=== PATIENT | male | born 1970 | race Asian ===

== ENCOUNTER 2019-11-29 10:13 | Emergency (ER) | payer OTHER ==
[2019-11-29] MEDS ORDERED: DEXAMETHASONE 10 MG/ML VIAL PO STA (10:50)
[2019-11-29] MEDS ORDERED: CHERRY SYRUP 10 ML UDC PO ONE (10:50)
[2019-11-29] MEDS ORDERED: KETOROLAC 60 MG/2 ML VIAL IM STA (10:51)
--- NOTE | 2019-11-29 11:48 | ED Physician Documentation ---
PD HPI BACK PAIN - Stated complaint Stated Complaint: LBP - Chief complaint Chief Complaint: Back Pain - History obtained from History obtained from: Patient - History of Present Illness Timing - onset: How many days ago (3) Timing - duration: Days Timing - details: Abrupt onset, Still present Location: Lower, Right Quality: Pain, Spasm, Sharp, Similar to prior episodes Associated symptoms: No: Fever, Weakness, Numbness, Incontinent of urine, Unable to urinate, Hematuria, Incontinent of stool Improves with: Rest, Ice, Position Worsened by: Movement, Lifting Similar symptoms before: Diagnosis (lumbar disc disease) Recently seen: Not recently seen - Additional information Additional information: 49-year-old male with a history of lumbar disc disease has injured his back again about 3 days ago when he slipped on the ice. He has had increased pain and is not able to walk without his cane. He denies any saddle anesthesia he den ies urinary incontinence. He does have some issues with constipation and diarrhea on a regular basis. He indicates that he is previously been treated with lumbar epidural steroid injection at [facility]. Review of Systems Constitutional: denies: Fever Eyes: denies: Decreased vision Ears: denies: Ear pain Nose: denies: Congestion Throat: denies: Sore throat Cardiac: denies: Chest pain / pressure, Palpitations Respiratory: denies: Dyspnea, Cough GI: denies: Abdominal Pain, Nausea, Vomiting : denies: Dysuria Musculoskeletal: reports: Back pain PD PAST MEDICAL HISTORY - Present Medications Home Medications: Ambulatory Orders Medication Instructions Recorded Confirmed Cyclobenzaprine [Flexeril] 10 mg PO TID PRN #20 tablet 11/29/19 Hydrocodone/Acetaminophen 1 - 2 each PO Q6H PRN #14 tablet 11/29/19 [Hydrocodon-Acetaminophen 5-325] - Allergies Allergies/Adverse Reactions: Allergies Allergy/AdvReac Type Severity Reaction Status Date / Time No Known Drug Allergies Allergy Verified 11/29/19 10:20 - Social History Does the pt smoke?: No Smoking Status: Never smoker Does the pt drink ETOH?: No Does the pt have substance abuse?: No - Immunizations Immunizations: TDAP >10years/unknown PD ED PE NORMAL - Vitals Vital signs reviewed: Yes (hypertensive) - General General: Alert and oriented X 3, Well developed/nourished, Other (Slim 49-year-old male who is standing at the bedside with a cane moves slowly.) - HEENT HEENT: Atraumatic, PERRL, EOMI - Neck Neck: Supple, no meningeal sign, No bony TTP - Respiratory Respiratory: No respiratory distress - Back Back: No CVA TTP, No spinal TTP, Other (There is tenderness to the paraspinous muscles in the lower lumbar spine.) - Derm Derm: Normal color, Warm and dry, No rash - Extremities Extremities: No deformity, No edema - Neuro Neuro: Alert and oriented X 3, rfid manager 2-12 intact, No motor deficit, No sensory deficit, Normal speech Eye Opening: Spontaneous Motor: Obeys Commands Verbal: Oriented GCS Score: 15 - Psych Psych: Normal mood, Normal affect Results - Vitals Vitals: Vital Signs - 24 hr 11/29/19 10:20 Temperature 36.5 C Heart Rate 88 Respiratory 14 Rate Blood Pressure 135/88 H O2 Saturation 100 Oxygen O2 Source Room air PD MEDICAL DECISION MAKING - ED course Complexity details: considered differential, d/w patient ED course: 49-year-old male with acute sciatica has pain rating down his right leg. He is administered dexamethasone 10 mg orally and Toradol 60 mg IM he does not have much relief of the pain with this. He is driving today. He will be administered pain medication muscle relaxant and he will follow-up in [place]. Departure - Departure Disposition: 01 Home, Self Care Clinical Impression: Sciatica Qualifiers: Laterality: right Qualified Code(s): M54.31 - Sciatica, right side Condition: Stable Instructions: ED Sciatica Follow-Up: [facility] [Provider Group] [facility] [Provider Group] Prescriptions: Cyclobenzaprine [Flexeril] 10 mg PO TID PRN #20 tablet PRN Reason: Spasms Hydrocodone/Acetaminophen [Hydrocodon-Acetaminophen 5-325] 1 - 2 each PO Q6H PRN #14 tablet PRN Reason: pain Forms: Activity restrictions
[2019-11-29 12:04] VITALS: BP 128/92
== END 2019-11-29 12:02 | disposition home or self-care (01) ==
LOC: ED 10:13
DX: M54.41 Lumbago with sciatica, right side (principal); W00.0XXA Fall on same level due to ice and snow, initial encounter
CPT/HCPCS: 96372; 99283; 99284; A9270

== ENCOUNTER 2020-03-21 11:26 | Emergency (ER) | payer OTHER ==
--- NOTE | 2020-03-21 12:44 | ED Physician Documentation ---
PD HPI BACK PAIN - Stated complaint Stated Complaint: BACK PX - Chief complaint Chief Complaint: Back Pain - History obtained from History obtained from: Patient - History of Present Illness Timing - onset: Last night (with just normal ROM, no noted acute mechanism.) Timing - duration: Days (1) Timing - details: Abrupt onset, Still present Location: Lower, Right, Left Quality: Pain, Spasm, Other (pain radiates down backs of both thighs, but not to lower leg nor feet. No numbness nor weakness.) Associated symptoms: No: Fever, Weakness, Numbness Improves with: Rest. No: Meds (Ibuprofen without improvement. Had FLexeril from prior episode, and helps some but makes him feel very dry mouth and lightheaded.) Worsened by: Movement, Twisting, Palpation Contributing factors: Twisting. No: Trauma Similar symptoms before: Diagnosis (has this about 1-2 times per year and usually lasts few days to a week. Normal acitivity in interval times.) Recently seen: Not recently seen Review of Systems Constitutional: denies: Fever, Chills, Myalgias Nose: denies: Rhinorrhea / runny nose, Congestion Throat: denies: Sore throat Respiratory: denies: Cough GI: denies: Abdominal Pain : denies: Dysuria, Frequency, Hematuria Skin: denies: Rash, Lesions Musculoskeletal: reports: Back pain. denies: Neck pain Neurologic: denies: Focal weakness, Numbness, Near syncope PD PAST MEDICAL HISTORY - Past Medical History Past Medical History: Yes Cardiovascular: None Respiratory: None Neuro: None Endocrine/Autoimmune: None GI: None : None HEENT: None Psych: None Musculoskeletal: Chronic back pain Derm: None - Present Medications Home Medications: Ambulatory Orders Medication Instructions Recorded Confirmed Cyclobenzaprine [Flexeril] 10 mg PO TID PRN #20 tablet 11/29/19 Hydrocodone/Acetaminophen 1 - 2 each PO Q6H PRN #14 tablet 11/29/19 [Hydrocodon-Acetaminophen 5-325] Oxycodone HCl/Acetaminophen 1 each PO TID PRN #20 tablet 03/21/20 [Percocet 5-325 mg Tablet] Tizanidine HCl 4 mg PO TID PRN #25 capsule 03/21/20 dexAMETHasone [Decadron] 4 mg PO DAILY #5 tablet 03/21/20 - Allergies Allergies/Adverse Reactions: Allergies Allergy/AdvReac Type Severity Reaction Status Date / Time No Known Drug Allergies Allergy Verified 11/29/19 10:20 - Social History Does the pt smoke?: No Smoking Status: Never smoker Does the pt drink ETOH?: No Does the pt have substance abuse?: No - Immunizations Immunizations: TDAP >10years/unknown - POLST Patient has POLST: No PD ED PE NORMAL - Vitals Vital signs reviewed: Yes - General General: Alert and oriented X 3, Well developed/nourished, Other (appears uncomfortable and markedly guarding motion of low back. ) - Back Back: No CVA TTP, No spinal TTP, Other (tender in paralumbar muscles without focal trigger. No redness/skin lesions. ) - Derm Derm: Normal color, Warm and dry - Neuro Neuro: Alert and oriented X 3, No motor deficit, No sensory deficit, Normal speech, Other (normal patellar reflexes. ) Results - Vitals Vitals: Vital Signs - 24 hr 03/21/20 03/21/20 11:37 14:07 Temperature 36.7 C 36.7 C Heart Rate 88 68 Respiratory 16 16 Rate Blood Pressure 119/77 109/84 H O2 Saturation 99 100 Oxygen O2 Source Room air PD MEDICAL DECISION MAKING - ED course Complexity details: considered differential (episodic low back pain with red flags. ), d/w patient Departure - Departure Disposition: 01 Home, Self Care Clinical Impression: Acute low back pain Qualifiers: Back pain laterality: bilateral Sciatica presence: with sciatica Sciatica laterality: bilateral sciatica Qualified Code(s): M54.42 - Lumbago with sciatica, left side; M54.41 - Lumbago with sciatica, right side Condition: Stable Record reviewed to determine appropriate education?: Yes Instructions: ED Low Back Pain Injury Follow-Up: [facility] [Provider Group] Prescriptions: dexAMETHasone [Decadron] 4 mg PO DAILY #5 tablet Oxycodone HCl/Acetaminophen [Percocet 5-325 mg Tablet] 1 each PO TID PRN #20 tablet PRN Reason: pain Tizanidine HCl 4 mg PO TID PRN #25 capsule PRN Reason: Spasms Comments: Heat and gentle stretching for the low back. Physical treatments such as chiropractic and massage are good. Range of motion exercises are helpful for the back as well. Use your ibuprofen 600 mg 3 times a day with food for the next 7 to 10 days. Add tizanidine muscle relaxant every 6-8 hours if needed for spasms and stiffness. Also add Decadron steroid anti-inflammatory for the next 5 days. To these add Tylenol 4 times a day or Percocet if needed for worse pain. Recheck if not improving well over the next few days and resolved in 5 or 6 days. Off work for the next 5 days to help with improvement. Forms: Activity restrictions Discharge Date/Time: 03/21/20 14:10
[2020-03-21] MEDS ORDERED: DEXAMETHASONE 10 MG/ML VIAL PO STA (12:59)
[2020-03-21] MEDS ORDERED: HYDROmorphone 2 MG/ML VIAL IM STA (12:59)
[2020-03-21] MEDS ORDERED: CHERRY SYRUP 10 ML UDC PO ONE (12:59)
[2020-03-21] MEDS ORDERED: KETOROLAC 30 MG/ML VIAL IM STA (12:59)
[2020-03-21] MEDS ORDERED: ACETAMINOPHEN 325 MG TABLET PO STA (13:00)
[2020-03-21 14:08] VITALS: BP 109/84
== END 2020-03-21 14:10 | disposition home or self-care (01) ==
LOC: ED 11:26
DX: M54.42 Lumbago with sciatica, left side (principal); M54.41 Lumbago with sciatica, right side
CPT/HCPCS: 96372; 99283; A9270; J1170

== ENCOUNTER 2022-11-08 10:50 | Emergency (ER) | payer OTHER ==
[2022-11-08] MEDS ORDERED: HYDROmorphone 1 MG/ML CARPUJECT IM STA (13:01)
[2022-11-08] MEDS ORDERED: DEXAMETHASONE 10 MG/ML VIAL PO STA (13:01)
[2022-11-08] MEDS ORDERED: KETOROLAC 60 MG/2 ML VIAL IM STA (13:01)
[2022-11-08] MEDS ORDERED: CHERRY SYRUP 10 ML UDC PO ONE (13:01)
--- NOTE | 2022-11-08 13:03 | ED Physician Documentation ---
PD HPI BACK PAIN - Stated complaint Stated Complaint: L BACK PX - Chief complaint Chief Complaint: Back Pain - History obtained from History obtained from: Patient - Additional information Additional information: 52-year-old gentleman gets intermittent exacerbations of low back pain a couple times a year. He has known degenerative disc disease. Without specific trauma his left low back started hurting yesterday with radiation into the left hip. He denies any new weakness, numbness, tingling, fevers, or incontinence. Because of that he feels like he has to walk hunched over. He tried a Flexeril prior to arrival which was mildly helpful but gave him severe dry mouth. Review of Systems Constitutional: denies: Fever, Chills GI: denies: Abdominal Pain Musculoskeletal: reports: Neck pain, Back pain. denies: Joint swelling PD PAST MEDICAL HISTORY - Past Medical History Past Medical History: Yes Cardiovascular: None Respiratory: None Neuro: None Endocrine/Autoimmune: None GI: None : None HEENT: None Psych: None Musculoskeletal: Chronic back pain Derm: None - Present Medications Home Medications: Ambulatory Orders Medication Instructions Recorded Confirmed Cyclobenzaprine [Flexeril] 10 mg PO TID PRN #20 tablet 11/29/19 Hydrocodone/Acetaminophen 1 - 2 each PO Q6H PRN #14 tablet 11/29/19 [Hydrocodon-Acetaminophen 5-325] Oxycodone HCl/Acetaminophen 1 each PO TID PRN #20 tablet 03/21/20 [Percocet 5-325 mg Tablet] Tizanidine HCl 4 mg PO TID PRN #25 capsule 03/21/20 dexAMETHasone [Decadron] 4 mg PO DAILY #5 tablet 03/21/20 HYDROcod/ACETAM 5/325 [[place] 5/325] 1 - 2 tab PO Q6H PRN #15 tablet 11/08/22 - Allergies Allergies/Adverse Reactions: Allergies Allergy/AdvReac Type Severity Reaction Status Date / Time No Known Drug Allergies Allergy Verified 11/08/22 11:24 - Social History Does the pt smoke?: No Smoking Status: Never smoker Does the pt drink ETOH?: No Does the pt have substance abuse?: No - Immunizations Immunizations: TDAP >10years/unknown - POLST Patient has POLST: No PD ED PE NORMAL - Vitals Vital signs reviewed: Yes - General General: Alert and oriented X 3, No acute distress, Other (Win[place] with motion) - Abdomen Abdomen: Normal bowel sounds, Soft, Non tender - Back Back: No spinal TTP, Other (The patient has equal and normal Achilles and patellar reflexes bilaterally. Normal sensation in all areas of the legs. Patient denies saddle anesthesia. Normal strength in flexion-extension at the ankles, knees, and flexion of the hips.) - Neuro Neuro: Alert and oriented X 3, Normal speech Results - Vitals Vitals: Vital Signs - 24 hr 11/08/22 11:22 Temperature 36.4 C L Heart Rate 89 Respiratory 20 Rate Blood Pressure 131/103 H O2 Saturation 96 Oxygen O2 Source Room air PD Medical Decision Making - ED course ED course: This patient has seemingly uncomplicated musculoskeletal back pain. The patient has no "red flags." Specifically denies IV drug use, fevers, incontinence, saddle anesthesia. Spinal epidural abscess was considered, given that the pat ient has no fever, is not diabetic, has no spinal tenderness, does not use IV drugs, and has no bilateral neurologic symptoms, the diagnosis of spinal epidural abscess is considered exceedingly unlikely. I am prescribing a short course of short-acting opioid pain medication for this patient. I have reviewed the patients [employer] and no concerning findings were noted. I have discussed that the opioids are for short term therapy only, and will not be refilled from the ED. Departure - Departure Disposition: 01 Home, Self Care Clinical Impression: Acute exacerbation of chronic low back pain Condition: Good Record reviewed to determine appropriate education?: Yes Instructions: ED Spasm Back No Trauma Prescriptions: HYDROcod/ACETAM 5/325 [[place] 5/325] 1 - 2 tab PO Q6H PRN #15 tablet PRN Reason: Pain Comments: I sent your prescription electronically to [facility] in [place]. Call your doctor to arrange a follow-up appointment, make the next available appointment. In the interim, return anytime if worse or if new symptoms develop. I am prescribing a short course of narcotic pain medication for you. These are potentially dangerous and addictive medications that should be used carefully. These medications may constipate you. Take an [id number] stool softener (docusate) twice daily with plenty of water while taking these medications. If you go 24 hours without a bowel movement, take [id number] miralax, per package instructions. Do not drink or drive while taking these medications. If you received narcotic or sedating medications while in the emergency department, do not drive for 24 hours. Store this medication in a safe, secure place and out of reach of children. It is a violation of federal law to give or sell this medication to another person or to use in a manner other than prescribed. The ED will not refill narcotic prescriptions, including prescriptions lost or stolen. To dispose of unwanted medications: 1. [facility] at [address] in [place] has a medication drop box. They accept prescription medications (in pill form) Friday through Friday 9:00 a.m. to 5:00 p.m. 2. The [facility] [employer] accepts prescription medications (in pill form only) for disposal year round. Call for more information. 3. Contact the [facility] for the next [facility] sponsored prescription drug collection event. , [phone], or [phone]; Note that many narcotic pain relievers also contain Tylenol/acetaminophen. Please ensure that your total dose of acetaminophen from all sources does not exceed 3 g (3000 mg) per day. Forms: Activity restrictions
[2022-11-08 13:26] VITALS: BP 136/93
== END 2022-11-08 13:26 | disposition home or self-care (01) ==
LOC: ED 10:50
DX: M54.59 Other low back pain (principal)
CPT/HCPCS: 96372; 99283; A9270; J1170

== ENCOUNTER 2022-11-12 07:47 | Outpatient (CLI) | payer OTHER ==
[~2022-11-12 07:47] MED LIST: GADOBUTROL 7.5 MMOL/7.5 ML VIAL ONE
--- NOTE | 2022-11-12 13:25 | MRI Report ---
PROCEDURE: CHEST W/WO INDICATIONS: R FLANK MASS CONTRAST: GADAVIST 6.3ML TECHNIQUE: Precontrast Axial 2-D spoiled GE in- and [id number], axial breath-hold T2 FSE, axial STIR FSE. Aft er administration of contrast, axial 2-D spoiled GE with fat saturation acquired over the lesion of c oncern. COMPARISON: None. FINDINGS: Image quality: Excellent. Region of interest: Fiducial marker is placed over lateral abdominal wall at the level inferior to t he tip of right kidney. There is significant ring artifacts markedly limits the evaluation of this re gion. Normal fat signal is noted at the site of the marker without discrete enhancing soft tissue mas s or fluid collection. Bones: Nearby osseous structures demonstrate normal overall marrow signal. IMPRESSION: 1. Markedly limited study of right flank soft tissue due to significant artifacts. 2. Limiting evaluation of right lateral abdominal wall soft tissue shows normal fat signal likely rep resent benign lipoma. 3. No other soft tissue mass or area of abnormal enhancement is seen. No marrow signal abnormality. If indicated, dedicated MRI of abdominal wall without and with contrast can be done for further evalu ation of this area. Reviewed by: Orion Moreno MD on 11/12/2022 1:24 PM PST Approved by: Orion Moreno MD on 11/12/2022 1:24 PM PST Station ID: [id number]
[2022-11-12] MEDS ORDERED: GADOBUTROL 7.5 MMOL/7.5 ML VIAL IVP ONE (13:57)
== END 2022-11-12 07:48 | disposition home or self-care (01) ==
LOC: DI 07:47
PROVIDERS: ATTEND Registered Nurse
DX: R22.2 Localized swelling, mass and lump, trunk (principal)
CPT/HCPCS: 71552; A9585

== ENCOUNTER 2022-11-23 07:15 | Outpatient (CLI) | payer OTHER ==
--- NOTE | 2022-11-25 08:55 | MRI Report ---
PROCEDURE: CERVICAL SPINE WO INDICATIONS: CERVICAL RADICLOPATHY TECHNIQUE: Noncontrast sagittal T1 spin echo and T2 fast spin echo, sagittal STIR, foraminal oblique sagittal T2 fast spin echo, and axial gradient echo or T2 fast spin echo through the cervical spine. COMPARISON: None. FINDINGS: Image quality: Excellent. Alignment and Curvature: There is loss of normal cervical lordosis. Bone Marrow: Marrow demonstrates normal overall signal. Mild reactive signal throughout the endplat es of the cervical and upper thoracic spine. Spinal Cord: Visualized spinal cord has normal size and signal. No cerebellar tonsillar herniation. Paraspinous Soft Tissues: No paravertebral masses. Prevertebral soft tissues are normal in thicknes s. C2-C3: Congenital canal stenosis. Mild disc desiccation and diffuse disc bulge. Mild facet and uncov ertebral hypertrophy bilaterally. Moderate canal stenosis. Mild bilateral foraminal stenosis. C3-C4: Congenital canal stenosis. Mild disc desiccation and diffuse disc bulge with superimposed ce ntral protrusion. Mild facet and uncovertebral hypertrophy bilaterally. Severe canal stenosis. Mild c ord flattening. Severe right and moderate left foraminal stenosis. Right C4 nerve root compression. C4-C5: Congenital canal stenosis. Moderate disc desiccation. Mild diffuse disc bulge with superimpos ed left paracentral protrusion. Mild facet and uncovertebral hypertrophy. Severe canal stenosis. Mild left cord flattening. Moderate bilateral foraminal stenosis. C5-C6: Congenital canal stenosis. Moderate disc desiccation. Mild diffuse disc bulge with superimpos ed right far lateral protrusion. Moderate right and mild left facet and uncovertebral hypertrophy. Se philip canal stenosis. Mild cord flattening. Severe right and mild left foraminal stenosis. Right C6 ne rve root compression. C6-C7: Congenital canal stenosis. Moderate disc desiccation. Moderate diffuse disc bulge with superi mposed right far lateral and left paracentral protrusion. Mild facet and uncovertebral hypertrophy bi laterally. Severe canal stenosis. Mild cord flattening. Severe right and moderate left foraminal sten osis. Right C7 nerve root compression. C7-T1: Congenital canal stenosis. Overall mild canal stenosis. No foraminal stenosis. IMPRESSION: 1. Diffuse congenital canal stenosis with superimposed disc and facet disease, as well as uncovertebr al hypertrophy. 2. Multilevel canal stenoses, worst at C3-C4, C4-C5, C5-C6, and C6-C7 where there is associated cord flattening. 3. Multilevel foraminal stenoses, worst at C3-C4, C5-C6, and C6-C7, where there is associated intrafo raminal nerve root compression. Recommend correlation with clinical symptoms to ascertain relevance o f these findings. Reviewed by: Mitchell Cho MD on 11/25/2022 8:53 AM PST Approved by: Mitchell Cho MD on 11/25/2022 8:53 AM PST Station ID: [id number]
== END 2022-11-23 07:16 | disposition home or self-care (01) ==
LOC: DI 07:15
PROVIDERS: ATTEND Registered Nurse
DX: M50.11 Cervical disc disorder with radiculopathy, high cervical region (principal); M48.02 Spinal stenosis, cervical region; M47.22 Other spondylosis with radiculopathy, cervical region

== ENCOUNTER 2023-01-15 18:21 | Emergency (ER) | payer OTHER ==
[2023-01-15 18:28] VITALS: BP 133/95
--- NOTE | 2023-01-15 18:42 | ED Physician Documentation ---
History of Present Illness - Stated complaint Stated Complaint: REMOVE ARTUR - Chief complaint Chief Complaint: Wound - History obtained from History obtained from: Patient - History of Present Illness Pain level max: 0 Pain level now: 0 - Additonal information Additional information: 52-year-old male presents requesting staple removal from his scalp. These were placed about 10 days ago. No complaints PD PAST MEDICAL HISTORY - Past Medical History Cardiovascular: None Respiratory: None Neuro: None Endocrine/Autoimmune: None GI: None : None HEENT: None Psych: None Musculoskeletal: Chronic back pain Derm: None - Present Medications Home Medications: Ambulatory Orders Medication Instructions Recorded Confirmed Cyclobenzaprine [Flexeril] 10 mg PO TID PRN #20 tablet 11/29/19 Hydrocodone/Acetaminophen 1 - 2 each PO Q6H PRN #14 tablet 11/29/19 [Hydrocodon-Acetaminophen 5-325] Oxycodone HCl/Acetaminophen 1 each PO TID PRN #20 tablet 03/21/20 [Percocet 5-325 mg Tablet] Tizanidine HCl 4 mg PO TID PRN #25 capsule 03/21/20 dexAMETHasone [Decadron] 4 mg PO DAILY #5 tablet 03/21/20 HYDROcod/ACETAM 5/325 [[place] 5/325] 1 - 2 tab PO Q6H PRN #15 tablet 11/08/22 - Allergies Allergies/Adverse Reactions: Allergies Allergy/AdvReac Type Severity Reaction Status Date / Time No Known Drug Allergies Allergy Verified 01/04/23 20:31 - Social History Does the pt smoke?: No Smoking Status: Never smoker Does the pt drink ETOH?: No Does the pt have substance abuse?: No - Immunizations Immunizations: TDAP >10years/unknown - POLST Patient has POLST: No PD ED PE NORMAL - Vitals Vital signs reviewed: Yes - General General: Alert and oriented X 3, No acute distress - HEENT HEENT: Other (3 artur on the occiput, well-healed. No signs of infection) - Derm Derm: Warm and dry - Neuro Neuro: Alert and oriented X 3 Results - Vitals Vitals: Vital Signs - 24 hr 01/15/23 18:24 Temperature 36.5 C Heart Rate 98 Respiratory 16 Rate Blood Pressure 133/95 H O2 Saturation 95 Oxygen O2 Source Room air Procedures - Suture/staple Removal (location) - Minor Scalp Suture/staple removal: # artur (3), No complications PD Medical Decision Making - ED course Complexity details: considered differential, d/w patient ED course: Artur removed. No complications. No signs of infection. This document was made in part using voice recognition software. While efforts are made to proofread this document, sound alike and grammatical errors may occur. Departure - Departure Disposition: 01 Home, Self Care Clinical Impression: Removal of staple Condition: Good Instructions: ED Stap Removal No Complication Follow-Up: your,doctor as needed [Other] Comments: Your artur are removed. Please return if you worsen. Return if you notice redness, swelling or drainage from the wound Discharge Date/Time: 01/15/23 18:45
== END 2023-01-15 18:45 | disposition home or self-care (01) ==
LOC: ED 18:21
DX: Z48.02 Encounter for removal of sutures (principal)
CPT/HCPCS: 99281

== ENCOUNTER 2023-09-11 12:08 | Emergency (ER) | payer OTHER ==
[2023-09-11 12:28] VITALS: O2SAT 98
[2023-09-11] MEDS ORDERED: DEXAMETHASONE 10 MG/ML VIAL PO STA (14:15)
[2023-09-11] MEDS ORDERED: HYDROmorphone 1 MG/ML CARPUJECT IM STA (14:15)
[2023-09-11] MEDS ORDERED: KETOROLAC 60 MG/2 ML VIAL IM STA (14:15)
[2023-09-11] MEDS ORDERED: CHERRY SYRUP 10 ML UDC PO ONE (14:15)
--- NOTE | 2023-09-11 14:18 | ED Physician Documentation ---
PD HPI BACK PAIN - Stated complaint Stated Complaint: BACK PX/SPASMS - Chief complaint Chief Complaint: Back Pain - History obtained from History obtained from: Patient - History of Present Illness Timing - onset: Yesterday Timing - duration: Days (1) Timing - details: Gradual onset Pain level max: 7 Pain level now: 7 Location: Lower, Left Quality: Pain, Spasm, Similar to prior episodes Associated symptoms: No: Fever, Weakness, Numbness, Incontinent of urine, Unable to urinate, Hematuria, Incontinent of stool Improves with: Rest Worsened by: Movement Contributing factors: No: Trauma, Anticoagulated, Cancer, IVDA - Additional information Additional information: Patient is a 53-year-old male who presents to the emergency department with left low lumbar back pain. States he has a history of degenerative disc disease in his back and that his back "flares up" once or twice per year. He usually receives a dose of Toradol, Dilaudid, dexamethasone and then is placed on Vicodin and Flexeril for home. No loss of bowel or bladder control. No injury that he is aware of. No fevers. No chills. Does not use IV drugs. No numbness or tingling. Worse with movement, better with rest. Today's episode is similar to his prior episodes. Review of Systems Constitutional: denies: Fever, Chills Respiratory: denies: Cough GI: denies: Abdominal Pain : denies: Unable to Void, Incontinent PD PAST MEDICAL HISTORY - Past Medical History Past Medical History: Yes Cardiovascular: None Respiratory: None Neuro: None Endocrine/Autoimmune: None GI: None : None HEENT: None Psych: None Musculoskeletal: Chronic back pain Derm: None - Present Medications Home Medications: Ambulatory Orders Medication Instructions Recorded Confirmed Cyclobenzaprine [Flexeril] 10 mg PO TID PRN #20 tablet 11/29/19 Hydrocodone/Acetaminophen 1 - 2 each PO Q6H PRN #14 tablet 11/29/19 [Hydrocodon-Acetaminophen 5-325] Oxycodone HCl/Acetaminophen 1 each PO TID PRN #20 tablet 03/21/20 [Percocet 5-325 mg Tablet] Tizanidine HCl 4 mg PO TID PRN #25 capsule 03/21/20 dexAMETHasone [Decadron] 4 mg PO DAILY #5 tablet 03/21/20 HYDROcod/ACETAM 5/325 [[place] 5/325] 1 - 2 tab PO Q6H PRN #15 tablet 11/08/22 Cyclobenzaprine [Flexeril] 10 mg PO TID PRN #20 tablet 09/11/23 HYDROcod/ACETAM 5/325 [[place] 5/325] 1 - 2 ea PO Q6H PRN #14 tablet 09/11/23 - Allergies Allergies/Adverse Reactions: Allergies Allergy/AdvReac Type Severity Reaction Status Date / Time No Known Drug Allergies Allergy Verified 09/11/23 12:19 - Social History Does the pt smoke?: No Smoking Status: Never smoker Does the pt drink ETOH?: No Does the pt have substance abuse?: No - Immunizations Immunizations: TDAP >10years/unknown - POLST Patient has POLST: No PD ED PE NORMAL - Vitals Vital signs reviewed: Yes - General General: Alert and oriented X 3, No acute distress - HEENT HEENT: PERRL, Moist mucous membranes - Neck Neck: Supple, no meningeal sign - Cardiac Cardiac: RRR, Strong equal pulses - Respiratory Respiratory: No respiratory distress, Clear bilaterally - Abdomen Abdomen: Soft, Non tender, Non distended - Back Back: No spinal TTP, Other (No midline tenderness palpation or percussion. No step-off or deformity. Paraspinal spasm left lower lumbar.) - Derm Derm: Warm and dry - Extremities Extremities: No edema, No calf tenderness / cord, Other (Normal bilateral lower extremity patellar and ankle jerk reflexes. Normal great toe extension bilaterally. no saddle anesthesia) - Neuro Neuro: Alert and oriented X 3, No motor deficit, No sensory deficit - Psych Psych: Normal mood, Normal affect Results - Vitals Vitals: Vital Signs - 24 hr 09/11/23 12:19 Temperature 36.5 C Heart Rate 84 Respiratory 16 Rate Blood Pressure 130/80 O2 Saturation 98 Oxygen O2 Source Room air PD Medical Decision Making - ED course Complexity details: reviewed old records, considered differential (No cauda equina, no spinal epidural abscess, no fracture, no aortic dissection or evidence of aneursym rupture), d/w patient ED course: Patient with acute on chronic back pain. He was given a dose of IM Toradol as well as Dilaudid. Also given a dose of dexamethasone as has been given to him in the past. Will place on Flexeril and Vicodin for home. No evidence of cauda equina, epidural abscess. No acute injury. No indication for emergent imaging at this time. Patient counseled regarding signs and symptoms for which I believe and urgent re-evaluation would be necessary. Patient with good understanding of and agreement to plan and is comfortable going home at this time This document was made in part using voice recognition software. While efforts are made to proofread this document, sound alike and grammatical errors may occur. Departure - Departure Disposition: 01 Home, Self Care Clinical Impression: Acute low back pain Qualifiers: Back pain laterality: left Sciatica presence: with sciatica Sciatica laterality: sciatica of left side Qualified Code(s): M54.42 - Lumbago with sciatica, left side Sciatica Qualifiers: Laterality: left Qualified Code(s): M54.32 - Sciatica, left side Condition: Good Instructions: ED Sciatica Follow-Up: AUSTIN GONZALES ARNP [Primary Care Provider] - Within 1 week Prescriptions: Cyclobenzaprine [Flexeril] 10 mg PO TID PRN #20 tablet PRN Reason: Spasms HYDROcod/ACETAM 5/325 [[place] 5/325] 1 - 2 ea PO Q6H PRN #14 tablet PRN Reason: Pain Comments: Please follow-up with your doctor for further care. Please return if you worsen. This should improve over the next few days as it has in the past. [facility] [place]. I am prescribing a short course of narcotic pain medication for you. These are potentially dangerous and addictive medications that should be used carefully. These medications may constipate you. Take an exeg-htv-yedvhll stool softener (docusate) twice daily with plenty of water while taking these medications. If you go 24 hours without a bowel movement, take oxmy-ehq-hrvsnfe miralax, per package instructions. Do not drink or drive while taking these medications. If you received narcotic or sedating medications while in the emergency department, do not drive for 24 hours. Store this medication in a safe, secure place and out of reach of children. It is a violation of federal law to give or sell this medication to another person or to use in a manner other than prescribed. The ED will not refill narcotic prescriptions, including prescriptions lost or stolen. To dispose of unwanted medications: 1. [facility] at [address] in [place] has a medication drop box. They accept prescription medications (in pill form) Friday through Friday 9:00 a.m. to 5:00 p.m. 2. [facility] accepts prescription medications (in pill form only) for disposal year round. Call for more information. 3. Contact the [facility] for the next [facility] sponsored prescription drug collection event. , [phone], or [phone];
[2023-09-11 14:40] VITALS: BP 127/89
== END 2023-09-11 14:42 | disposition home or self-care (01) ==
LOC: ED 12:08
DX: M54.42 Lumbago with sciatica, left side (principal); Z79.899 Other long term (current) drug therapy
CPT/HCPCS: 96372; 99283; 99284; A9270; J1170

== ENCOUNTER 2023-11-27 13:00 | Outpatient (CLI) | payer OTHER ==
--- NOTE | 2023-11-28 14:06 | MRI Report ---
PROCEDURE: LUMBAR SPINE WO INDICATIONS: LOW BACK PAIN TECHNIQUE: Noncontrast sagittal T1 spin echo and T2 fast echo, sagittal STIR, axial T1 and T2 fast spin echo thr ough the lumbar spine. In cases with scoliosis, additional coronal T2 fast spin echo may be performe d. COMPARISON: None. FINDINGS: Image quality: Excellent. Alignment and Curvature: There is normal bony alignment. Bone Marrow: Marrow is of normal overall signal. No acute vertebral body compression fractures. Spinal Cord: Conus medullaris terminates at the L1 level. Visualized cord demonstrates normal signa l and size. Paraspinous Soft Tissues: No paravertebral masses. T12-L1: Mild disc desiccation and height loss. Broad based disc bulge. Mild facet and ligamentum fla vum hypertrophy. No canal stenosis. No neural foraminal stenosis. L1-L2: Mild disc desiccation and height loss. Mild facet and ligamentum flavum hypertrophy. No can al stenosis. No foraminal stenosis. L2-L3: Severe disc desiccation and height loss. Broad based disc bulge. There is a posterior centr al disc protrusion which measures 1.2 x 0.7 x 2.1 cm. There is resultant severe canal stenosis. Mild left foraminal narrowing. No right foraminal stenosis. L3-L4: Moderate disc desiccation and height loss. There is a broad-based left paracentral disc bulg e and moderate facet and ligamentum flavum hypertrophy. This results in severe canal stenosis. There is moderate right foraminal narrowing. Mild left neuroforaminal stenosis is present. L4-L5: Moderate disc desiccation and height loss. Broad based disc bulge and severe facet and ligam entum flavum hypertrophy results in severe canal stenosis. Moderate bilateral foraminal narrowing. Th ere is a small focal posterior high intensity zone. L5-S1: Moderate disc desiccation and height loss. Broad based disc bulge. Moderate facet ligamentum flavum hypertrophy. No canal stenosis. No foraminal stenosis. There is a small focal posterior high intensity zone. IMPRESSION: 1. Multilevel disc desiccation and height loss most severe from L2-S1. 2. Broad-based disc bulges and facet and ligamentum flavum hypertrophy results in severe canal stenos is at L3-4 and L4-5. 3. Moderate bilateral foraminal stenosis at L4-5. 4. 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 Reviewed by: Ernestine Cruz MD on 11/28/2023 2:05 PM PST Approved by: Ernestine Cruz MD on 11/28/2023 2:05 PM PST Station ID: [id number]
== END 2023-11-27 13:01 | disposition home or self-care (01) ==
LOC: DI 13:00
PROVIDERS: ATTEND Registered Nurse
DX: M51.16 Intervertebral disc disorders with radiculopathy, lumbar region (principal); M48.061 Spinal stenosis, lumbar region without neurogenic claudication; M51.17 Intervertebral disc disorders with radiculopathy, lumbosacral region